=== PATIENT | male | born 1935 | race Caucasian/White ===

== ENCOUNTER 2016-10-12 15:56 | Inpatient (IN) | payer MEDICARE, BC ==
[2016-10-12] MEDS ORDERED: ZOCOR20 M1 PO (17:51)
[2016-10-12] MEDS ORDERED: PROTONIX20 M2 PO (17:53)
[2016-10-12 18:27] LABS: BASO % 0.1 % (0-2); HCT-HEMATOCRIT 52.3 % (36.0-53.5); HGB-HEMOGLOBIN 17.8 gm/dl (13.5-17.0); IMMATURE GRANULOCYTES ABSOLUTE 0.07 tho/cmm (0-0.03); IMMATURE GRANULOCYTES PERCENT 0.4 % (0-0.3); LYMPH % 4.2 % (20-45); LYMPH ABSOLUTE COUNT 0.7 tho/cmm (0.8-4.5); MCH (MEAN CORPUSCULAR HGB) 30.3 pg (28.0-32.0); MCV (MEAN CELL VOLUME) 88.9 fl (82.0-96.0); MEAN PLATELET VOLUME 9.9 cmc (9.4-12.4); MONO % 8.7 % (0-12); MONOCYTE ABSOLUTE COUNT 1.5 tho/cmm (0.0-1.2); NEUTROPHIL ABSOLUTE COUNT 14.8 tho/cmm (1.6-8.0); NEUTROPHIL-AUTOMATED 14.8 tho/cmm (1.6-8.0); NEUTROPHILS % 86.6 % (40-80); PLATELET COUNT 231 tho/cmm (150-450); RED BLOOD COUNT 5.88 mil/cmm (4.40-5.70); RED CELL DISTRIBUTION WIDTH 13.9 % (12.4-16.4)
[2016-10-12 18:42] LABS: ALB/GLOB RATIO 0.9 (0.8-2.0); ALBUMIN 2.8 g/dl (3.5-5.0); ALKALINE PHOSPHATASE 79 U/L (33-138); ALT/SGPT 17 U/L (12-78); ANION GAP 10 mmol/L (0-20); AST/SGOT 21 U/L (10-40); BILIRUBIN,TOTAL 1.1 mg/dl (0.0-1.5); BLOOD UREA NITROGEN 15 mg/dl (6-24); CALCIUM 7.8 mg/dl (8.5-10.5); CARBON DIOXIDE-VENOUS 27 mmol/L (22-32); CHLORIDE 104 mmol/l (96-110); CREATININE 1.24 mg/dl (0.60-1.30); GLUCOSE 260 mg/dL (70-110); MAGNESIUM 1.8 mg/dl (1.3-2.6); POTASSIUM 4.2 mmol/L (3.7-5.1); PREALBUMIN 14.2 mg/dl (20.0-40.0); SODIUM 137 mmol/L (135-145); eGFR VALUE FOR BLACK 64 mL/Min
[2016-10-13 11:14] LABS: BASO % 0.1 % (0-2); EOS % 0.1 % (0-7); HCT-HEMATOCRIT 53.7 % (36.0-53.5); HGB-HEMOGLOBIN 18.6 gm/dl (13.5-17.0); IMMATURE GRANULOCYTES ABSOLUTE 0.01 tho/cmm (0-0.03); IMMATURE GRANULOCYTES PERCENT 0.1 % (0-0.3); LYMPH % 8.4 % (20-45); MCH (MEAN CORPUSCULAR HGB) 30.4 pg (28.0-32.0); MCHC MEAN CORPUSCULAR HGB CONC 34.6 % (32.0-36.0); MCV (MEAN CELL VOLUME) 87.9 fl (82.0-96.0); MEAN PLATELET VOLUME 10.2 cmc (9.4-12.4); MONO % 12.1 % (0-12); MONOCYTE ABSOLUTE COUNT 1.4 tho/cmm (0.0-1.2); NEUTROPHIL ABSOLUTE COUNT 9.2 tho/cmm (1.6-8.0); NEUTROPHIL-AUTOMATED 9.2 tho/cmm (1.6-8.0); NEUTROPHILS % 79.2 % (40-80); RED BLOOD COUNT 6.11 mil/cmm (4.40-5.70); RED CELL DISTRIBUTION WIDTH 13.9 % (12.4-16.4); WHITE BLOOD COUNT 11.6 tho/cmm (4.0-10.0)
[2016-10-13 11:28] LABS: ANION GAP 15 mmol/L (0-20); BLOOD UREA NITROGEN 19 mg/dl (6-24); CALCIUM 7.3 mg/dl (8.5-10.5); CARBON DIOXIDE-VENOUS 22 mmol/L (22-32); CHLORIDE 98 mmol/l (96-110); CREATININE 1.39 mg/dl (0.60-1.30); GLUCOSE 248 mg/dL (70-110); SODIUM 130 mmol/L (135-145); eGFR VALUE FOR BLACK 56 mL/Min
[2016-10-13 11:31] LABS: POTASSIUM 4.8 mmol/L (3.7-5.1)
[2016-10-13 12:28] LABS: PLATELET COUNT 188 tho/cmm (150-450)
[2016-10-15 04:35] LABS: HGB-HEMOGLOBIN 11.9 gm/dl (13.5-17.0); PLATELET COUNT 132 tho/cmm (150-450)
[2016-10-16 05:08] LABS: ALBUMIN 1.8 g/dl (3.5-5.0); ANION GAP 9 mmol/L (0-20); BLOOD UREA NITROGEN 15 mg/dl (6-24); CALCIUM 7.2 mg/dl (8.5-10.5); CARBON DIOXIDE-VENOUS 29 mmol/L (22-32); CHLORIDE 104 mmol/l (96-110); CREATININE 0.75 mg/dl (0.60-1.30); GLUCOSE 140 mg/dL (70-110); PHOSPHOROUS 1.3 mg/dl (2.5-4.9); SODIUM 138 mmol/L (135-145); eGFR VALUE FOR BLACK >90 mL/Min
[2016-10-17 05:14] LABS: HGB-HEMOGLOBIN 11.6 gm/dl (13.5-17.0); PLATELET COUNT 183 tho/cmm (150-450)
[2016-10-19 03:51] LABS: PLATELET COUNT 191 tho/cmm (150-450)
[2016-10-19 09:26] LABS: ANION GAP 9 mmol/L (0-20); BLOOD UREA NITROGEN 14 mg/dl (6-24); CALCIUM 7.8 mg/dl (8.5-10.5); CARBON DIOXIDE-VENOUS 29 mmol/L (22-32); CHLORIDE 103 mmol/l (96-110); CREATININE 0.71 mg/dl (0.60-1.30); GLUCOSE 120 mg/dL (70-110); PHOSPHOROUS 3.3 mg/dl (2.5-4.9); SODIUM 137 mmol/L (135-145); eGFR VALUE FOR BLACK >90 mL/Min
[2016-10-19 09:30] LABS: HCT-HEMATOCRIT 33.2 % (36.0-53.5); HGB-HEMOGLOBIN 11.3 gm/dl (13.5-17.0); MCH (MEAN CORPUSCULAR HGB) 29.5 pg (28.0-32.0); MCV (MEAN CELL VOLUME) 86.7 fl (82.0-96.0); MEAN PLATELET VOLUME 9.6 cmc (9.4-12.4); NEUTROPHIL-AUTOMATED 6.5 tho/cmm (1.6-8.0); PLATELET COUNT 229 tho/cmm (150-450); RED BLOOD COUNT 3.83 mil/cmm (4.40-5.70); RED CELL DISTRIBUTION WIDTH 14.3 % (12.4-16.4); WHITE BLOOD COUNT 9.4 tho/cmm (4.0-10.0)
[2016-10-19 10:19] LABS: BAND % 5 % (0-20); BAND ABSOLUTE COUNT 0.5 tho/cmm (0-2.0); EOSINOPHIL % 3 % (0-7)
[2016-10-19 10:20] LABS: WBC MORPHOLOGY TOXIC GRANULATION
[2016-10-19 11:34] LABS: URINE UREA NITROGEN 287 mg/dl (350-1000); URINE UREA NITROGEN/DAY 16 g/day (7-20)
[2016-10-21 04:59] LABS: BASO % 0.2 % (0-2); HCT-HEMATOCRIT 31.5 % (36.0-53.5); HGB-HEMOGLOBIN 10.9 gm/dl (13.5-17.0); IMMATURE GRANULOCYTES ABSOLUTE 0.22 tho/cmm (0-0.03); IMMATURE GRANULOCYTES PERCENT 1.7 % (0-0.3); LYMPH % 7.7 % (20-45); MCH (MEAN CORPUSCULAR HGB) 29.5 pg (28.0-32.0); MCHC MEAN CORPUSCULAR HGB CONC 34.6 % (32.0-36.0); MCV (MEAN CELL VOLUME) 85.4 fl (82.0-96.0); MEAN PLATELET VOLUME 9.3 cmc (9.4-12.4); MONO % 6.7 % (0-12); MONOCYTE ABSOLUTE COUNT 0.9 tho/cmm (0.0-1.2); NEUTROPHILS % 83.7 % (40-80); PLATELET COUNT 285 tho/cmm (150-450); RED BLOOD COUNT 3.69 mil/cmm (4.40-5.70); RED CELL DISTRIBUTION WIDTH 14.3 % (12.4-16.4); WHITE BLOOD COUNT 13.1 tho/cmm (4.0-10.0)
[2016-10-21 05:12] LABS: ANION GAP 12 mmol/L (0-20); BLOOD UREA NITROGEN 19 mg/dl (6-24); CALCIUM 7.7 mg/dl (8.5-10.5); CARBON DIOXIDE-VENOUS 27 mmol/L (22-32); CHLORIDE 99 mmol/l (96-110); CREATININE 0.92 mg/dl (0.60-1.30); POTASSIUM 4.2 mmol/L (3.7-5.1); SODIUM 134 mmol/L (135-145); eGFR VALUE FOR BLACK >90 mL/Min
[2016-10-21 05:18] LABS: GLUCOSE 218 mg/dL (70-110)
[2016-10-22 22:36] LABS: BASO % 0.2 % (0-2); EOSINOPHIL ABSOLUTE COUNT 0.3 tho/cmm (0.0-0.7); HCT-HEMATOCRIT 31.2 % (36.0-53.5); HGB-HEMOGLOBIN 10.7 gm/dl (13.5-17.0); IMMATURE GRANULOCYTES ABSOLUTE 0.18 tho/cmm (0-0.03); IMMATURE GRANULOCYTES PERCENT 1.4 % (0-0.3); LYMPH % 12.6 % (20-45); LYMPH ABSOLUTE COUNT 1.6 tho/cmm (0.8-4.5); MCH (MEAN CORPUSCULAR HGB) 29.6 pg (28.0-32.0); MCHC MEAN CORPUSCULAR HGB CONC 34.3 % (32.0-36.0); MCV (MEAN CELL VOLUME) 86.4 fl (82.0-96.0); MEAN PLATELET VOLUME 9.1 cmc (9.4-12.4); MONO % 5.4 % (0-12); MONOCYTE ABSOLUTE COUNT 0.7 tho/cmm (0.0-1.2); NEUTROPHILS % 78.4 % (40-80); PLATELET COUNT 373 tho/cmm (150-450); RED BLOOD COUNT 3.61 mil/cmm (4.40-5.70); RED CELL DISTRIBUTION WIDTH 14.4 % (12.4-16.4); WHITE BLOOD COUNT 12.8 tho/cmm (4.0-10.0)
[2016-10-23 05:55] LABS: HGB-HEMOGLOBIN 11.3 gm/dl (13.5-17.0); PLATELET COUNT 396 tho/cmm (150-450)
[2016-10-23 09:03] LABS: BASO % 0.4 % (0-2); EOS % 2.3 % (0-7); EOSINOPHIL ABSOLUTE COUNT 0.2 tho/cmm (0.0-0.7); HCT-HEMATOCRIT 30.6 % (36.0-53.5); HGB-HEMOGLOBIN 10.1 gm/dl (13.5-17.0); IMMATURE GRANULOCYTES ABSOLUTE 0.17 tho/cmm (0-0.03); IMMATURE GRANULOCYTES PERCENT 1.8 % (0-0.3); LYMPH % 11.7 % (20-45); LYMPH ABSOLUTE COUNT 1.1 tho/cmm (0.8-4.5); MCH (MEAN CORPUSCULAR HGB) 29.3 pg (28.0-32.0); MCV (MEAN CELL VOLUME) 88.7 fl (82.0-96.0); MEAN PLATELET VOLUME 8.8 cmc (9.4-12.4); MONO % 6.7 % (0-12); MONOCYTE ABSOLUTE COUNT 0.7 tho/cmm (0.0-1.2); NEUTROPHIL ABSOLUTE COUNT 7.5 tho/cmm (1.6-8.0); NEUTROPHIL-AUTOMATED 7.5 tho/cmm (1.6-8.0); NEUTROPHILS % 77.1 % (40-80); PLATELET COUNT 362 tho/cmm (150-450); RED BLOOD COUNT 3.45 mil/cmm (4.40-5.70); WHITE BLOOD COUNT 9.7 tho/cmm (4.0-10.0)
[2016-10-24 06:01] LABS: BASO % 0.3 % (0-2); EOSINOPHIL ABSOLUTE COUNT 0.3 tho/cmm (0.0-0.7); HCT-HEMATOCRIT 30.4 % (36.0-53.5); HGB-HEMOGLOBIN 10.1 gm/dl (13.5-17.0); IMMATURE GRANULOCYTES ABSOLUTE 0.23 tho/cmm (0-0.03); IMMATURE GRANULOCYTES PERCENT 2.5 % (0-0.3); LYMPH % 17.4 % (20-45); LYMPH ABSOLUTE COUNT 1.6 tho/cmm (0.8-4.5); MCH (MEAN CORPUSCULAR HGB) 28.8 pg (28.0-32.0); MCHC MEAN CORPUSCULAR HGB CONC 33.2 % (32.0-36.0); MCV (MEAN CELL VOLUME) 86.6 fl (82.0-96.0); MEAN PLATELET VOLUME 8.8 cmc (9.4-12.4); MONO % 8.3 % (0-12); MONOCYTE ABSOLUTE COUNT 0.8 tho/cmm (0.0-1.2); NEUTROPHIL ABSOLUTE COUNT 6.2 tho/cmm (1.6-8.0); NEUTROPHIL-AUTOMATED 6.2 tho/cmm (1.6-8.0); NEUTROPHILS % 68.5 % (40-80); PLATELET COUNT 410 tho/cmm (150-450); RED BLOOD COUNT 3.51 mil/cmm (4.40-5.70); RED CELL DISTRIBUTION WIDTH 14.6 % (12.4-16.4); WHITE BLOOD COUNT 9.1 tho/cmm (4.0-10.0)
[2016-10-31] MEDS ORDERED: OXANDRIN PO (09:34)
[2016-10-31] MEDS ORDERED: SODIUM CHLOR1 GM/TAB PO (09:34)
[2016-10-31] MEDS ORDERED: MORPHINE S30 MG/301 IV ×2 (09:34→09:38)
[2016-10-31] MEDS ORDERED: SENNA S TABLET1 EACH PO (09:35)
[2016-10-31] MEDS ORDERED: NOVOLOG FL100 UNIT/2 (09:36)
[2016-10-31] MEDS ORDERED: PROTONIX40 M2 PO (09:36)
[2016-10-31] MEDS ORDERED: ZOCOR20 M1 PO (09:36)
[2016-10-31] MEDS ORDERED: ZOSYN IV (09:37)
[2016-10-31] MEDS ORDERED: LOVENOX40 MG/0.1 SC (09:37)
[2016-10-31] MEDS ORDERED: GLUCAGON HCL1 MG SC (09:37)
[2016-10-31] MEDS ORDERED: LEVAQUIN750 M1 PO (09:37)
[2016-10-31] MEDS ORDERED: MILK OF MAGNESIA PO (09:38)
[2016-10-31] MEDS ORDERED: BISCOLAX10 MG PR (09:38)
[2016-10-31] MEDS ORDERED: ATIVAN0.5 M1 PO (09:39)
[2016-10-31] MEDS ORDERED: ENEMEEZ283 MG/5 M PR (09:39)
[2016-10-31] MEDS ORDERED: TYLENOL325 M2 PO (09:40)
[2016-10-31] MEDS ORDERED: NORCO 5-325 TA1 EACH PO (09:40)
[2016-10-31] MEDS ORDERED: ZOFRAN4 M2 PO (09:40)
[2016-11-07] MEDS ORDERED: MERREM1 GM IV (11:35)
[2016-11-12] MEDS ORDERED: LASIX40 M1 PO (10:05)
[2016-11-12] MEDS ORDERED: POTASSIUM CHLO10 ME2 PO (10:05)
[2016-11-12] MEDS ORDERED: DILAUDID2 M1 PO (10:06)
[2016-11-12] MEDS ORDERED: CELEBREX100 M1 PO (10:06)
[2016-11-13] MEDS ORDERED: SILVER SULFADIAZINE TOP (07:21)
[2016-11-13] MEDS ORDERED: SULFAMYLON SOL250 M1 EXT (07:22)
[2016-11-13] MEDS ORDERED: ENEMEEZ283 MG/5 M (07:31)
[2016-11-13] MEDS ORDERED: MORPHINE SU2 MG/1 M2 IV (19:29)
[2016-11-13] MEDS ORDERED: SODIUM CHLOR1 GM/TAB PO (19:31)
[2016-11-13] MEDS ORDERED: SENNA-S TABLET1 EAC3 PO (19:32)
[2016-11-13] MEDS ORDERED: OXANDRIN PO (19:32)
[2016-11-13] MEDS ORDERED: LASIX40 M1 PO (19:33)
[2016-11-13] MEDS ORDERED: POTASSIUM CHLO20 ME3 PO (19:34)
[2016-11-13] MEDS ORDERED: NOVOLOG FL100 UNIT/2 SC (19:36)
[2016-11-13] MEDS ORDERED: PROTONIX40 M2 PO (19:37)
[2016-11-13] MEDS ORDERED: SILVADENE20 G1 TOP (19:37)
[2016-11-13] MEDS ORDERED: MIRALAX17 G2 PO (19:38)
[2016-11-13] MEDS ORDERED: CELEBREX100 M1 PO (19:39)
[2016-11-13] MEDS ORDERED: SULFAMYLON SOL250 M1 TOP (19:40)
[2016-11-13] MEDS ORDERED: ZOCOR20 M1 PO (19:40)
[2016-11-13] MEDS ORDERED: LOVENOX40 MG/0.1 SC (19:41)
[2016-11-13] MEDS ORDERED: MEROPENEM-1 GM/50 ML IV (19:41)
[2016-11-13] MEDS ORDERED: GLUCAGEN1 MG/1 ML IM (19:42)
[2016-11-13] MEDS ORDERED: MILK OF MAGNESIA PO (19:43)
[2016-11-13] MEDS ORDERED: TYLENOL325 M2 PO (19:44)
[2016-11-13] MEDS ORDERED: CATHFLO ACTIVASE2 MG IV (19:44)
[2016-11-13] MEDS ORDERED: ATIVAN0.5 M1 PO (19:44)
[2016-11-13] MEDS ORDERED: BISACODYL5 M1 PO (19:45)
[2016-11-13] MEDS ORDERED: HYDROCODON-ACE1 EA16 PO (19:45)
[2016-11-13] MEDS ORDERED: ZOFRAN ODT4 MG SL (19:46)
[2016-11-28] MEDS ORDERED: KLOR-CON M2020 ME1 PO (13:10)
[2016-11-28] MEDS ORDERED: PROTONIX40 M2 PO (13:10)
[2016-11-28] MEDS ORDERED: GLUCOPHAGE XR500 M1 PO (13:10)
[2016-11-28] MEDS ORDERED: LASIX40 M1 PO (13:11)
[2016-11-28] MEDS ORDERED: SODIUM CHLOR1 GM/TAB PO (13:11)
[2016-11-28] MEDS ORDERED: OXANDROLONE PO (13:11)
[2016-11-28] MEDS ORDERED: HUMULIN R100 UNITS/ SC (13:12)
[2016-11-28] MEDS ORDERED: SENNA-DOCUSATE1 EAC1 PO (13:12)
[2016-11-28] MEDS ORDERED: LOVENOX40 MG/0.1 SC (13:13)
[2016-11-28] MEDS ORDERED: ZOCOR20 M1 PO (13:13)
[2016-11-28] MEDS ORDERED: CELEBREX100 M1 PO (13:13)
[2016-11-28] MEDS ORDERED: ATIVAN0.5 M1 PO (13:13)
[2016-11-28] MEDS ORDERED: MIRALAX17 G2 PO (13:13)
[2016-11-28] MEDS ORDERED: ROXICODONE5 M2 PO (13:14)
[2016-11-28] MEDS ORDERED: ZOFRAN4 M2 PO (13:14)
== END 2016-10-24 15:40 | DRG 928 ==
LOC: BURN 15:56
PROVIDERS: Family Medicine; Surgery; ADMIT Surgery
PROC: 0HDLXZZ Extraction of Left Lower Leg Skin, External Approach (ICD-10-PCS; principal; 2016-10-12)
PROC: XHRPXL2 Replacement of Skin using Porcine Liver Derived Skin Substitute, External Approach, New Technology Group 2 (ICD-10-PCS; 2016-10-12)
PROC: XHRPXL2 Replacement of Skin using Porcine Liver Derived Skin Substitute, External Approach, New Technology Group 2 (ICD-10-PCS; 2016-10-12)
PROC: 0HDFXZZ Extraction of Right Hand Skin, External Approach (ICD-10-PCS; 2016-10-12)
PROC: 05H633Z Insertion of Infusion Device into Left Subclavian Vein, Percutaneous Approach (ICD-10-PCS; 2016-10-13)
PROC: 0HRHXK3 Replacement of Right Upper Leg Skin with Nonautologous Tissue Substitute, Full Thickness, External Approach (ICD-10-PCS; 2016-10-14)
PROC: 0JBN0ZZ Excision of Right Lower Leg Subcutaneous Tissue and Fascia, Open Approach (ICD-10-PCS; 2016-10-14)
PROC: 0JBL0ZZ Excision of Right Upper Leg Subcutaneous Tissue and Fascia, Open Approach (ICD-10-PCS; 2016-10-14)
PROC: 0HRKXK3 Replacement of Right Lower Leg Skin with Nonautologous Tissue Substitute, Full Thickness, External Approach (ICD-10-PCS; 2016-10-14)
PROC: 0Y3 Anatomical Regions, Lower Extremities, Control (ICD-10-PCS; 2016-10-17)
PROC: 0SCF0ZZ Extirpation of Matter from Right Ankle Joint, Open Approach (ICD-10-PCS; 2016-10-17)
PROC: 0YB Anatomical Regions, Lower Extremities, Excision (ICD-10-PCS; 2016-10-20)
PROC: 0HRJXK3 Replacement of Left Upper Leg Skin with Nonautologous Tissue Substitute, Full Thickness, External Approach (ICD-10-PCS; 2016-10-20)
DX: T24.392A Burn of third degree of multiple sites of left lower limb, except ankle and foot, initial encounter (principal); E43 Unspecified severe protein-calorie malnutrition; T31.20 Burns involving 20-29% of body surface with 0% to 9% third degree burns; L76.22 Postprocedural hemorrhage of skin and subcutaneous tissue following other procedure; L76.32 Postprocedural hematoma of skin and subcutaneous tissue following other procedure; T24.391A Burn of third degree of multiple sites of right lower limb, except ankle and foot, initial encounter; T23.091A Burn of unspecified degree of multiple sites of right wrist and hand, initial encounter; X08.8XXA Exposure to other specified smoke, fire and flames, initial encounter; E78.5 Hyperlipidemia, unspecified; Z87.11 Personal history of peptic ulcer disease; Z88.8 Allergy status to other drugs, medicaments and biological substances
CPT/HCPCS: C1751; J0171; J0610; J1170; J1580; J1650; J1815; J1956; J2250; J2270; J2543; J3010; J3260; J3370; J3475; J7050; J7999; L4396; P9045; Q4105; Q4136

== ENCOUNTER 2016-11-14 05:31 | Inpatient (IN) | payer MEDICARE, BC ==
[~2016-11-14 05:31] MED LIST: ATIVAN0.5 M1 PO; BISACODYL5 M1 PO; BISCOLAX10 MG PR; CATHFLO ACTIVASE2 MG IV; CELEBREX100 M1 PO; DILAUDID2 M1 PO; ENEMEEZ283 MG/5 M; ENEMEEZ283 MG/5 M PR; GLUCAGEN1 MG/1 ML IM; GLUCAGON HCL1 MG SC; HYDROCODON-ACE1 EA16 PO; LASIX40 M1 PO; LEVAQUIN750 M1 PO; LOVENOX40 MG/0.1 SC; MEROPENEM-1 GM/50 ML IV; MERREM1 GM IV; MILK OF MAGNESIA PO; MIRALAX17 G2 PO; MORPHINE S30 MG/301 IV; MORPHINE SU2 MG/1 M2 IV; NORCO 5-325 TA1 EACH PO; NOVOLOG FL100 UNIT/2; NOVOLOG FL100 UNIT/2 SC; OXANDRIN PO; POTASSIUM CHLO10 ME2 PO; POTASSIUM CHLO20 ME3 PO; PROTONIX20 M2 PO; PROTONIX40 M2 PO; SENNA S TABLET1 EACH PO; SENNA-S TABLET1 EAC3 PO; SILVADENE20 G1 TOP; SILVER SULFADIAZINE TOP; SODIUM CHLOR1 GM/TAB PO; SULFAMYLON SOL250 M1 EXT; SULFAMYLON SOL250 M1 TOP; TYLENOL325 M2 PO; ZOCOR20 M1 PO; ZOFRAN ODT4 MG SL; ZOFRAN4 M2 PO; ZOSYN IV
[2016-11-15] MEDS ORDERED: BISCOLAX10 MG PR (08:47)
[2016-11-15] MEDS ORDERED: ENEMEEZ283 MG/5 M PR (08:49)
[2016-11-15] MEDS ORDERED: MORPHINE SU2 MG/1 M2 IV (10:09)
[2016-11-16 07:21] LABS: BASO % 0.4 % (0-2); EOS % 2.1 % (0-7); EOSINOPHIL ABSOLUTE COUNT 0.2 tho/cmm (0.0-0.7); HCT-HEMATOCRIT 28.3 % (36.0-53.5); IMMATURE GRANULOCYTES ABSOLUTE 0.03 tho/cmm (0-0.03); IMMATURE GRANULOCYTES PERCENT 0.4 % (0-0.3); LYMPH % 10.9 % (20-45); LYMPH ABSOLUTE COUNT 0.9 tho/cmm (0.8-4.5); MCH (MEAN CORPUSCULAR HGB) 26.7 pg (28.0-32.0); MCHC MEAN CORPUSCULAR HGB CONC 31.8 % (32.0-36.0); MEAN PLATELET VOLUME 8.4 cmc (9.4-12.4); MONO % 10.1 % (0-12); MONOCYTE ABSOLUTE COUNT 0.8 tho/cmm (0.0-1.2); NEUTROPHIL ABSOLUTE COUNT 6.1 tho/cmm (1.6-8.0); NEUTROPHIL-AUTOMATED 6.1 tho/cmm (1.6-8.0); NEUTROPHILS % 76.1 % (40-80); PLATELET COUNT 334 tho/cmm (150-450); RED BLOOD COUNT 3.37 mil/cmm (4.40-5.70); RED CELL DISTRIBUTION WIDTH 15.5 % (12.4-16.4); WHITE BLOOD COUNT 8.1 tho/cmm (4.0-10.0)
[2016-11-16 07:22] LABS: INR 1.1 INR (0.9-1.1); PROTHROMBIN TIME 12.3 SECONDS (9.0-13.6)
[2016-11-16 07:30] LABS: ANION GAP 11 mmol/L (0-20); BLOOD UREA NITROGEN 16 mg/dl (6-24); CALCIUM 7.9 mg/dl (8.5-10.5); CARBON DIOXIDE-VENOUS 29 mmol/L (22-32); CHLORIDE 104 mmol/l (96-110); CREATININE 0.84 mg/dl (0.60-1.30); GLUCOSE 123 mg/dL (70-110); POTASSIUM 4.2 mmol/L (3.7-5.1); SODIUM 140 mmol/L (135-145); eGFR VALUE FOR BLACK >90 mL/Min
[2016-11-16 14:26] LABS: BASO % 0.1 % (0-2); EOS % 0.4 % (0-7); EOSINOPHIL ABSOLUTE COUNT 0.1 tho/cmm (0.0-0.7); HCT-HEMATOCRIT 29.8 % (36.0-53.5); HGB-HEMOGLOBIN 9.5 gm/dl (13.5-17.0); IMMATURE GRANULOCYTES ABSOLUTE 0.05 tho/cmm (0-0.03); IMMATURE GRANULOCYTES PERCENT 0.3 % (0-0.3); LYMPH % 9.6 % (20-45); LYMPH ABSOLUTE COUNT 1.4 tho/cmm (0.8-4.5); MCH (MEAN CORPUSCULAR HGB) 27.1 pg (28.0-32.0); MCHC MEAN CORPUSCULAR HGB CONC 31.9 % (32.0-36.0); MCV (MEAN CELL VOLUME) 84.9 fl (82.0-96.0); MEAN PLATELET VOLUME 8.4 cmc (9.4-12.4); MONO % 5.1 % (0-12); MONOCYTE ABSOLUTE COUNT 0.8 tho/cmm (0.0-1.2); NEUTROPHIL ABSOLUTE COUNT 12.4 tho/cmm (1.6-8.0); NEUTROPHIL-AUTOMATED 12.4 tho/cmm (1.6-8.0); NEUTROPHILS % 84.5 % (40-80); PLATELET COUNT 345 tho/cmm (150-450); RED BLOOD COUNT 3.51 mil/cmm (4.40-5.70); RED CELL DISTRIBUTION WIDTH 15.3 % (12.4-16.4)
[2016-11-16 14:27] LABS: WHITE BLOOD COUNT 14.7 tho/cmm (4.0-10.0)
[2016-11-16 14:39] LABS: ANION GAP 13 mmol/L (0-20); BLOOD UREA NITROGEN 15 mg/dl (6-24); CALCIUM 7.9 mg/dl (8.5-10.5); CARBON DIOXIDE-VENOUS 26 mmol/L (22-32); CHLORIDE 102 mmol/l (96-110); CREATININE 0.94 mg/dl (0.60-1.30); SODIUM 137 mmol/L (135-145); eGFR VALUE FOR BLACK 90 mL/Min
[2016-11-16 14:42] LABS: GLUCOSE 274 mg/dL (70-110)
[2016-11-17 11:57] LABS: BASO % 0.2 % (0-2); EOSINOPHIL ABSOLUTE COUNT 0.2 tho/cmm (0.0-0.7); HCT-HEMATOCRIT 26.3 % (36.0-53.5); HGB-HEMOGLOBIN 8.3 gm/dl (13.5-17.0); IMMATURE GRANULOCYTES ABSOLUTE 0.02 tho/cmm (0-0.03); IMMATURE GRANULOCYTES PERCENT 0.3 % (0-0.3); LYMPH % 12.8 % (20-45); LYMPH ABSOLUTE COUNT 0.8 tho/cmm (0.8-4.5); MCHC MEAN CORPUSCULAR HGB CONC 31.6 % (32.0-36.0); MCV (MEAN CELL VOLUME) 85.7 fl (82.0-96.0); MEAN PLATELET VOLUME 8.5 cmc (9.4-12.4); MONO % 8.1 % (0-12); MONOCYTE ABSOLUTE COUNT 0.5 tho/cmm (0.0-1.2); NEUTROPHILS % 75.6 % (40-80); PLATELET COUNT 301 tho/cmm (150-450); RED BLOOD COUNT 3.07 mil/cmm (4.40-5.70); RED CELL DISTRIBUTION WIDTH 15.7 % (12.4-16.4)
[2016-11-17 11:58] LABS: WHITE BLOOD COUNT 6.6 tho/cmm (4.0-10.0)
[2016-11-17 12:07] LABS: ANION GAP 8 mmol/L (0-20); BLOOD UREA NITROGEN 16 mg/dl (6-24); CALCIUM 7.4 mg/dl (8.5-10.5); CARBON DIOXIDE-VENOUS 31 mmol/L (22-32); CHLORIDE 102 mmol/l (96-110); CREATININE 0.82 mg/dl (0.60-1.30); GLUCOSE 147 mg/dL (70-110); POTASSIUM 4.3 mmol/L (3.7-5.1); SODIUM 137 mmol/L (135-145); eGFR VALUE FOR BLACK >90 mL/Min
[2016-11-28] MEDS ORDERED: PROTONIX40 M2 PO (13:10)
[2016-11-28] MEDS ORDERED: KLOR-CON M2020 ME1 PO (13:10)
[2016-11-28] MEDS ORDERED: GLUCOPHAGE XR500 M1 PO (13:10)
[2016-11-28] MEDS ORDERED: LASIX40 M1 PO (13:11)
[2016-11-28] MEDS ORDERED: SODIUM CHLOR1 GM/TAB PO (13:11)
[2016-11-28] MEDS ORDERED: OXANDROLONE PO (13:11)
[2016-11-28] MEDS ORDERED: HUMULIN R100 UNITS/ SC (13:12)
[2016-11-28] MEDS ORDERED: SENNA-DOCUSATE1 EAC1 PO (13:12)
[2016-11-28] MEDS ORDERED: LOVENOX40 MG/0.1 SC (13:13)
[2016-11-28] MEDS ORDERED: CELEBREX100 M1 PO (13:13)
[2016-11-28] MEDS ORDERED: ATIVAN0.5 M1 PO (13:13)
[2016-11-28] MEDS ORDERED: MIRALAX17 G2 PO (13:13)
[2016-11-28] MEDS ORDERED: ZOCOR20 M1 PO (13:13)
[2016-11-28] MEDS ORDERED: ZOFRAN4 M2 PO (13:14)
[2016-11-28] MEDS ORDERED: ROXICODONE5 M2 PO (13:14)
== END 2016-11-22 16:16 | DRG 935 ==
LOC: SHSC 05:31 → ORW 09:33 → BURN 11:50 → PACU 11-16 13:13 → BURN 11-16 14:35
PROVIDERS: Surgery; ADMIT Surgery
PROC: 0HRKX73 Replacement of Right Lower Leg Skin with Autologous Tissue Substitute, Full Thickness, External Approach (ICD-10-PCS; 2016-11-14)
PROC: 0HR Skin and Breast, Replacement (ICD-10-PCS; 2016-11-14)
PROC: 0HRLX73 Replacement of Left Lower Leg Skin with Autologous Tissue Substitute, Full Thickness, External Approach (ICD-10-PCS; principal; 2016-11-16)
PROC: 0HRKX73 Replacement of Right Lower Leg Skin with Autologous Tissue Substitute, Full Thickness, External Approach (ICD-10-PCS; 2016-11-16)
PROC: 0HR Skin and Breast, Replacement (ICD-10-PCS; 2016-11-16)
DX: T24.091A Burn of unspecified degree of multiple sites of right lower limb, except ankle and foot, initial encounter (principal); T31.20 Burns involving 20-29% of body surface with 0% to 9% third degree burns; T24.092A Burn of unspecified degree of multiple sites of left lower limb, except ankle and foot, initial encounter; E78.5 Hyperlipidemia, unspecified; F41.9 Anxiety disorder, unspecified; M19.90 Unspecified osteoarthritis, unspecified site; R11.0 Nausea
CPT/HCPCS: J0171; J1170; J1580; J1815; J2185; J2250; J2997; J3010; J3370; J7050; L4396; Q4100